=== PATIENT | female | born 2000 | race Caucasian/White ===

== ENCOUNTER 2022-04-01 20:08 | Emergency (ER) | payer BC, MEDICAID ==
[~2022-04-01 20:08] MED LIST: IBUPROFEN800 MG PO
== END 2022-04-01 22:05 | disposition home or self-care (01) ==
LOC: ER1 20:08
DX: M25.512 Pain in left shoulder (principal); M25.422 Effusion, left elbow; K21.9 Gastro-esophageal reflux disease without esophagitis; J45.909 Unspecified asthma, uncomplicated; W01.0XXA Fall on same level from slipping, tripping and stumbling without subsequent striking against object, initial encounter; Y92.009 Unspecified place in unspecified non-institutional (private) residence as the place of occurrence of the external cause
CPT/HCPCS: 73030; 73080; 99283